=== PATIENT | male | born 1935 | race Caucasian/White ===

== ENCOUNTER 2024-06-15 13:14 | Inpatient (IN) | payer BC, MEDICARE, SELFPAY ==
[~2024-06-15 13:14] MED LIST: Iopamidol-370 76% 500 ML MDV (1 ML CHARGE) ONE
[2024-06-15] MEDS ORDERED: Ondansetron PF 4 MG/2 ML Vial ONE (13:32)
[2024-06-15] MEDS ORDERED: cefTRIAXone (ROCEPHIN) 2 GM VIAL ONE (14:09)
[2024-06-15] MEDS ORDERED: Sodium Chloride 0.9% 100 ML ONE (14:09)
[2024-06-15] MEDS ORDERED: Acetaminophen 500 MG TAB ONE (14:09)
[2024-06-15 14:11] LABS: #Basophils Less than 0.03 10x3/uL (0.0-0.2); #Eosinophils Less than 0.03 10x3/uL (0.0-0.7); %Basophils 0.4 % (0.0-1.0); %Eosinophils 0.2 % (0.0-10.0); %Lymphocytes 3.4 % (21.0-51.0); %Monocytes 0.8 % (0.0-10.0); %Neutrophils 94.6 % (42.0-75.0); Hematocrit 34.3 % (42.0-52.0); Hemoglobin 11.3 g/dL (14.0-18.0); Mean Corpuscular HGB CONC 32.9 g/dL (32.0-36.0); Mean Corpuscular Hemoglobin 31.9 pg (27.0-31.0); Mean Corpuscular Volume 96.9 fL (78.0-98.0); Mean Platelet Volume 8.8 fL (7.4-10.4); Platelet Count 126 10x3/uL (130-400); RBC Distribution Width 12.6 % (11.5-14.5); Red Blood Cell (RBC) Count 3.54 mill/uL (4.70-6.10)
[2024-06-15 14:29] LABS: ALT (SGPT) 11 U/L (8-55); AST (SGOT) 14 U/L (5-34); Albumin 3.7 g/dL (3.4-4.8); Alkaline Phosphatase 85 U/L (40-110); Anion Gap 13 mmol/L (10-20); BUN (Urea Nitrogen) 20 mg/dL (8.4-25.7); Bilirubin, Total 1.3 mg/dL (0.2-1.2); Calc. Creatinine Clearance 0 mL/min (70-130); Calcium 8.5 mg/dL (7.8-10.44); Carbon Dioxide 22 mmol/L (23-31); Chloride 108 mmol/L (98-107); Estimated GFR 52; Globulin 2.9 g/dL (2.4-3.5); Glucose 128 mg/dL (83-110); Magnesium 1.5 mg/dL (1.6-2.6); Potassium 4.1 mmol/L (3.5-5.1); Protein, Total 6.6 g/dL (5.8-8.1); Sodium 139 mmol/L (136-145)
[2024-06-15] MEDS ORDERED: Azithromycin 500 MG VIAL ONE (14:56)
[2024-06-15] MEDS ORDERED: Magnesium 2 GM/50 ML BAG (IN WATER) ONE (16:10)
[2024-06-15 17:06] LABS: Bacteria/HPF 3+ HPF (None Seen); Bilirubin Negative (Negative); Blood, Urine Trace (Negative); CAUTI Indications for Culture Alt mental st,lethar; Clarity Turbid (Clear); Glucose, Urine (Dipstick) Normal (Negative); Ketone, Urine Negative (Negative); Leukocyte 500 Leu/uL (Negative); Nitrite Negative (Negative); Protein, Urine (Dipstick) 20 mg/dL (Neg-Trace); Specific Gravity, Urine 1.022 (1.002-1.036); Squamous Epithelial 0-3 HPF (0-3); Urobilinogen Normal mg/dL (Less than 2); WBC/HPF Greater than 50 HPF (0-3); pH, Urine 6.5 (5.0-9.0)
[2024-06-15 17:09] LABS: Urine Culture Reflex Yes Yes
[2024-06-15 17:12] LABS: Lactic Acid 1.41 mmol/L (0.5-2.2)
[2024-06-15 17:23] LABS: Troponin I 0.018 ng/mL (< 0.028)
[2024-06-15] MEDS ORDERED: Acetaminophen 650 MG Suppository PR PRN (17:43)
[2024-06-15] MEDS ORDERED: Ondansetron PF 4 MG/2 ML Vial IVP PRN (17:43)
[2024-06-15] MEDS: Sodium Chloride 0.9% 500 ML IV SCH ×2 (19:45→20:30)
[2024-06-15 20:37] LABS: Troponin I 0.052 ng/mL (< 0.028)
[2024-06-15] MEDS: Albumin 25% 25 GM (100 mL) BOT IVPB SCH (20:37)
[2024-06-15] MEDS: Ketorolac Tromethamine 30 MG (1 mL) VIAL IVP SCH (20:42)
[2024-06-15] MEDS: Sodium Chloride 0.9% 1,000 ML IV SCH (21:00)
[2024-06-15 21:28] LABS: ALT (SGPT) 8 U/L (8-55); AST (SGOT) 11 U/L (5-34); Alkaline Phosphatase 50 U/L (40-110); Anion Gap 12 mmol/L (10-20); BUN (Urea Nitrogen) 22 mg/dL (8.4-25.7); Bilirubin, Total 0.5 mg/dL (0.2-1.2); Calc. Creatinine Clearance 0 mL/min (70-130); Calcium 7.5 mg/dL (7.8-10.44); Carbon Dioxide 20 mmol/L (23-31); Chloride 111 mmol/L (98-107); Estimated GFR 48; Globulin 2.5 g/dL (2.4-3.5); Glucose 151 mg/dL (83-110); Magnesium 2.1 mg/dL (1.6-2.6); Potassium 4.6 mmol/L (3.5-5.1); Protein, Total 5.5 g/dL (5.8-8.1); Sodium 138 mmol/L (136-145)
[2024-06-15 21:43] LABS: Anisocytosis SLIGHT = 6-15 cells HPF (0-5); Band 19 % (5-11); Lymphocytes 1 % (21-51); Macrocytosis SLIGHT = 6-15 cells HPF (0-5); Monocytes 5 % (0-10); Neutrophil 76 % (42-75); Platelet Adequacy Comment Platelets Decreased; Polychromasia SLIGHT = 2-3 cells HPF (0-2)
[2024-06-15] MEDS ORDERED: NOREPINEPHRINE 8 MG/250 ML-D5W 250 ML IVPB SCH (22:00)
[2024-06-15 22:32] LABS: Plasma Cells 1 % (0-0)
[2024-06-15 22:33] LABS: Hematocrit 28.5 % (42.0-52.0); Hemoglobin 9.2 g/dL (14.0-18.0); Mean Corpuscular HGB CONC 32.3 g/dL (32.0-36.0); Mean Corpuscular Hemoglobin 32.1 pg (27.0-31.0); Mean Corpuscular Volume 99.3 fL (78.0-98.0); Mean Platelet Volume 8.9 fL (7.4-10.4); Platelet Count 134 10x3/uL (130-400); RBC Distribution Width 12.8 % (11.5-14.5); Red Blood Cell (RBC) Count 2.87 mill/uL (4.70-6.10)
[2024-06-15] MEDS ORDERED: Ipratropium/Albuterol 3 ML NEB NEB PRN (23:11)
[2024-06-15] MEDS: Famotidine/PF 20 mg/2ml Vial SLOW IVP SCH (23:41)
[2024-06-15] MEDS: Piperacillin/Tazobactam 3.375 GM in Sodium Chloride 0.9% 100 ML IVPB SCH (23:41)
[2024-06-16 00:03] VITALS: BMI 25.3
[2024-06-16] MEDS: Piperacillin/Tazobactam 3.375 GM in Sodium Chloride 0.9% 100 ML IVPB SCH (04:50)
[2024-06-16] MEDS: Enoxaparin 40 MG (0.4 mL) SYRINGE SC SCH (09:51)
[2024-06-16 09:54] LABS: #Basophils Less than 0.03 10x3/uL (0.0-0.2); %Basophils 0.3 % (0.0-1.0); %Eosinophils 1.2 % (0.0-10.0); %Lymphocytes 4.7 % (21.0-51.0); %Monocytes 7.4 % (0.0-10.0); %Neutrophils 85.7 % (42.0-75.0); Hematocrit 31.8 % (42.0-52.0); Hemoglobin 10.2 g/dL (14.0-18.0); Mean Corpuscular HGB CONC 32.1 g/dL (32.0-36.0); Mean Corpuscular Hemoglobin 32.1 pg (27.0-31.0); Mean Platelet Volume 9.3 fL (7.4-10.4); Platelet Count 104 10x3/uL (130-400); RBC Distribution Width 12.8 % (11.5-14.5); Red Blood Cell (RBC) Count 3.18 mill/uL (4.70-6.10)
[2024-06-16 10:19] LABS: Anion Gap 9 mmol/L (10-20); BUN (Urea Nitrogen) 27 mg/dL (8.4-25.7); Calc. Creatinine Clearance 43 mL/min (70-130); Calcium 7.7 mg/dL (7.8-10.44); Carbon Dioxide 22 mmol/L (23-31); Chloride 111 mmol/L (98-107); Estimated GFR 48; Glucose 93 mg/dL (83-110); Magnesium 2.2 mg/dL (1.6-2.6); Potassium 4.4 mmol/L (3.5-5.1); Sodium 138 mmol/L (136-145)
[2024-06-16 10:23] LABS: Anisocytosis SLIGHT = 6-15 cells HPF (0-5); Macrocytosis SLIGHT = 6-15 cells HPF (0-5); Platelet Adequacy Comment Platelets Decreased; Polychromasia SLIGHT = 2-3 cells HPF (0-2)
[2024-06-16] MEDS ORDERED: cefTRIAXone\\ROCEPHIN 2 GM in Sodium Chloride 0.9% 100 ML IVPB SCH (14:00)
[2024-06-16] MEDS: Azithromycin 500 MG in Sodium Chloride 0.9% 250 ML 250 ML IVPB SCH (17:45)
[2024-06-16] MEDS: Haloperidol Lactate 5 MG/ML VIAL IM SCH (17:45)
[2024-06-16] MEDS ORDERED: Lorazepam 2 MG/ML VIAL SLOW IVP SCH (23:45)
[2024-06-16] MEDS: Lorazepam 2 MG/ML VIAL SLOW IVP SCH (23:46)
[2024-06-17 05:47] LABS: #Basophils 0.03 10x3/uL (0.0-0.2); %Basophils 0.6 % (0.0-1.0); %Eosinophils 0.6 % (0.0-10.0); %Lymphocytes 7.2 % (21.0-51.0); %Monocytes 9.9 % (0.0-10.0); %Neutrophils 81.1 % (42.0-75.0); Hematocrit 30.1 % (42.0-52.0); Hemoglobin 9.4 g/dL (14.0-18.0); Mean Corpuscular HGB CONC 31.2 g/dL (32.0-36.0); Mean Corpuscular Hemoglobin 31.9 pg (27.0-31.0); Mean Platelet Volume 9.4 fL (7.4-10.4); Platelet Count 114 10x3/uL (130-400); RBC Distribution Width 12.4 % (11.5-14.5); Red Blood Cell (RBC) Count 2.95 mill/uL (4.70-6.10)
[2024-06-17 06:04] LABS: Anion Gap 10 mmol/L (10-20); BUN (Urea Nitrogen) 26 mg/dL (8.4-25.7); Calc. Creatinine Clearance 47 mL/min (70-130); Calcium 8.2 mg/dL (7.8-10.44); Carbon Dioxide 23 mmol/L (23-31); Chloride 113 mmol/L (98-107); Estimated GFR 54; Glucose 84 mg/dL (83-110); Potassium 4.5 mmol/L (3.5-5.1); Sodium 141 mmol/L (136-145)
[2024-06-17] MEDS: Ranolazine ER 500 MG TAB PO SCH (08:29)
[2024-06-17] MEDS: Aspirin 81 mg Enteric Coated Tablet PO SCH (08:48)
[2024-06-17] MEDS: Atorvastatin Calcium 10 MG TAB PO SCH (08:48)
[2024-06-17] MEDS: Ferrous Sulfate 325 MG TAB PO SCH (08:48)
[2024-06-17] MEDS: Loratadine 10 MG TAB PO SCH (08:48)
[2024-06-17] MEDS: Dextrose 5%-Lactated Ringers 1,000 ML IV SCH (14:33)
[2024-06-17] MEDS: Folic Acid 1 MG TAB PO SCH (20:53)
[2024-06-17] MEDS: Cyanocobalamin (Vitamin B-12) 1,000 MCG TAB PO SCH (20:53)
[2024-06-17] MEDS: Senokot S 8.6-50 MG TAB PO SCH (20:53)
[2024-06-17] MEDS: Cholecalciferol 1,000 UNITS (25 MCG) TAB PO SCH (20:53)
[2024-06-17] MEDS: Thiamine 100 MG TAB PO SCH (20:53)
[2024-06-17 23:07] VITALS: BMI 25.4
[2024-06-18 05:15] LABS: #Basophils Less than 0.03 10x3/uL (0.0-0.2); %Basophils 0.4 % (0.0-1.0); %Eosinophils 0.9 % (0.0-10.0); %Lymphocytes 7.6 % (21.0-51.0); %Monocytes 13.8 % (0.0-10.0); %Neutrophils 76.7 % (42.0-75.0); Hematocrit 28.4 % (42.0-52.0); Hemoglobin 9.3 g/dL (14.0-18.0); Mean Corpuscular HGB CONC 32.7 g/dL (32.0-36.0); Mean Corpuscular Hemoglobin 31.7 pg (27.0-31.0); Mean Corpuscular Volume 96.9 fL (78.0-98.0); Mean Platelet Volume 9.2 fL (7.4-10.4); Platelet Count 132 10x3/uL (130-400); RBC Distribution Width 11.9 % (11.5-14.5); Red Blood Cell (RBC) Count 2.93 mill/uL (4.70-6.10)
[2024-06-18 05:16] LABS: Anion Gap 9 mmol/L (10-20); BUN (Urea Nitrogen) 18 mg/dL (8.4-25.7); Calc. Creatinine Clearance 62 mL/min (70-130); Calcium 8.2 mg/dL (7.8-10.44); Carbon Dioxide 25 mmol/L (23-31); Chloride 111 mmol/L (98-107); Estimated GFR 75; Glucose 106 mg/dL (83-110); Potassium 3.6 mmol/L (3.5-5.1); Sodium 141 mmol/L (136-145)
[2024-06-18 05:26] LABS: Phosphorus 2.1 mg/dL (2.3-4.7)
[2024-06-18] MEDS: cefTRIAXone\\ROCEPHIN 2 GM in Sodium Chloride 0.9% 100 ML IVPB SCH (10:10)
[2024-06-18] MEDS: Metoprolol Tartrate 25 MG TAB PO SCH (21:48)
[2024-06-19 04:31] LABS: #Basophils 0.04 10x3/uL (0.0-0.2); %Basophils 0.7 % (0.0-1.0); %Eosinophils 2.8 % (0.0-10.0); %Lymphocytes 11.9 % (21.0-51.0); %Monocytes 13.1 % (0.0-10.0); %Neutrophils 70.6 % (42.0-75.0); Hematocrit 32.3 % (42.0-52.0); Hemoglobin 10.5 g/dL (14.0-18.0); Mean Corpuscular HGB CONC 32.5 g/dL (32.0-36.0); Mean Corpuscular Hemoglobin 31.4 pg (27.0-31.0); Mean Corpuscular Volume 96.7 fL (78.0-98.0); Mean Platelet Volume 9.2 fL (7.4-10.4); Platelet Count 130 10x3/uL (130-400); RBC Distribution Width 11.9 % (11.5-14.5); Red Blood Cell (RBC) Count 3.34 mill/uL (4.70-6.10)
[2024-06-19 04:46] LABS: Anion Gap 10 mmol/L (10-20); BUN (Urea Nitrogen) 18 mg/dL (8.4-25.7); Calc. Creatinine Clearance 62 mL/min (70-130); Calcium 8.7 mg/dL (7.8-10.44); Carbon Dioxide 28 mmol/L (23-31); Chloride 108 mmol/L (98-107); Estimated GFR 76; Glucose 122 mg/dL (83-110); Magnesium 1.9 mg/dL (1.6-2.6); Phosphorus 2.1 mg/dL (2.3-4.7); Potassium 3.9 mmol/L (3.5-5.1); Sodium 142 mmol/L (136-145)
[2024-06-19] MEDS: cefTRIAXone\\ROCEPHIN 2 GM in Sodium Chloride 0.9% 100 ML IVPB SCH (10:20)
[2024-06-19] MEDS ORDERED: hydrALAZINE 20 MG/ML VIAL SLOW IVP PRN (15:29)
[2024-06-20] MEDS: Metoprolol Tartrate 25 MG TAB PO SCH (09:31)
[2024-06-20] MEDS: Acetaminophen 325 MG TAB PO PRN (18:18)
[2024-06-21 07:39] VITALS: TEMP 98.1
[2024-06-21 16:37] VITALS: BP 165/102
== END 2024-06-21 16:05 | DRG 871 ==
LOC: ERS 13:14 → INTOOBSV 15:40 → 2NO 15:40 → CCU 22:48 → OBSVTOIN 06-16 00:22 → MSONC 06-16 16:23
PROVIDERS: ADMIT Family Medicine; ATTEND Internal Medicine
PROC: 3E03329 Introduction of Other Anti-infective into Peripheral Vein, Percutaneous Approach (ICD-10-PCS; principal; 2024-06-15)
PROC: 30233J1 Transfusion of Nonautologous Serum Albumin into Peripheral Vein, Percutaneous Approach (ICD-10-PCS; 2024-06-15)
PROC: 3E033XZ Introduction of Vasopressor into Peripheral Vein, Percutaneous Approach (ICD-10-PCS; 2024-06-15)
DX: A41.59 Other Gram-negative sepsis (principal); J18.9 Pneumonia, unspecified organism; R65.21 Severe sepsis with septic shock; J96.01 Acute respiratory failure with hypoxia; N39.0 Urinary tract infection, site not specified; I69.854 Hemiplegia and hemiparesis following other cerebrovascular disease affecting left non-dominant side; N17.9 Acute kidney failure, unspecified; E44.0 Moderate protein-calorie malnutrition; R65.20 Severe sepsis without septic shock; E83.42 Hypomagnesemia; I25.10 Atherosclerotic heart disease of native coronary artery without angina pectoris; E78.5 Hyperlipidemia, unspecified; N18.30 Chronic kidney disease, stage 3 unspecified; I12.9 Hypertensive chronic kidney disease with stage 1 through stage 4 chronic kidney disease, or unspecified chronic kidney disease; Z74.01 Bed confinement status; Z88.8 Allergy status to other drugs, medicaments and biological substances; Z98.890 Other specified postprocedural states; Z90.49 Acquired absence of other specified parts of digestive tract; Z79.899 Other long term (current) drug therapy; Z79.82 Long term (current) use of aspirin; G47.33 Obstructive sleep apnea (adult) (pediatric); Z86.718 Personal history of other venous thrombosis and embolism
CPT/HCPCS: 36415; 36416; 51701; 71045; 71275; 76705; 76770; 80048; 80053; 81001; 83605; 83735; 83880; 84100; 84146; 84484; 85025; 86141; 87040; 87077; 87086; 87149; 87186; 87428; 93005; 96365; 96367; 96375; G0378; J0456; J0696; J1630; J1650; J1885; J2060; J2405; J2543; J3475; J3490; J7030; J7050; P9047; Q9967